=== PATIENT | male | born 1950 | race Caucasian/White ===

== ENCOUNTER 2016-06-17 13:54 | Emergency (ER) | payer OTHER ==
[2016-06-17] MEDS ORDERED: TETRACAINE 0.5% - 2 ML EYE DROPS ONE (14:01)
[2016-06-17] MEDS ORDERED: FLUORESCEIN 1 MG EYE STRIP ONE (14:01)
[2016-06-17] MEDS: FLUORESCEIN 1 MG EYE STRIP LEFT EYE ONE (14:10)
[2016-06-17] MEDS: TETRACAINE 0.5% - 2 ML EYE DROPS LEFT EYE ONE (14:10)
[2016-06-17 14:24] VITALS: RESP 16; TEMP 96.7
--- NOTE | 2016-06-18 01:01 | PDOC ---
Eye Complaint HPI - General Chief Complaint: Eye Problem / Injury Stated Complaint: foreign body left eye Date Seen by Provider: 06/17/16 Time Seen by Provider: 14:00 Source: POSITIVE: Patient Exam Limitations: POSITIVE: No limitations Nurse's Notes Reviewed & Considered: Yes - History of Present Illness Initial Comments: The patient is a 66-year-old male. 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 He was not wearing any safety glasses or corrective lenses. He states that he developed an abrupt onset of a foreign body sensation in his left eye. Under normal circumstances he states he does not wear contact lenses or eyeglasses. 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) Severity: Moderate Quality: REPORTS: "Pain" (Foreign body sensation left eye) Recent Injury: REPORTS: Yes (As above) Associated Symptoms: REPORTS: Foreign Body Sensation Context: REPORTS: Foreign Body, Direct Trauma Concurrent Injuries: DENIES: Neck, Head, Back, Chest, Abdomen, Extremities, Face , Other Modifying Factors: DENIES: Nothing Exacerbates, Exertion, Movement, Rest, Ice, Positioning, Nothing Relieves, Other Similar Symptoms Previously: No Recent Care Received: REPORTS: Denies Any Prior Injuries Related to Current Complaint?: No - Patient Home Medications Home Medications: Home Medications Imiquimod 1 each TOPICAL QD #14 pkg 01/06/16 Levothyroxine Sodium 1 tab-cap PO QAM #90 tab 01/06/16 Sulfacetamide Oph Soln 10% [Bleph 10 Ophth Soln] 5 ml OP Q6H #4 drops 06/17/16 - Patient Allergies Allergies/Adverse Reactions: Allergies Allergy/AdvReac Type Severity Reaction Status Date / Time No Known Drug Allergies Allergy NOT Verified 06/17/16 14:06 APPLICABLE Past Medical History - heen HEENT History: Denies History Cardiovascular History: Denies History Respiratory History: Denies History Gastrointestinal History: Denies History Genitourinary History: Denies History Endocrine History: Hypothyroidism Musculoskeletal History: Back Pain, Osteoarthritis Neurological History: Traumatic Brain Injury Blood Disorders: Denies History Psychiatric History: Denies History History of Sexually Transmitted Diseases: No Cancer History: Denies History In Past Year Been Physically Harmed or Verbally Threatened: No History of MDRO: Unknown Tobacco Use: Never Smoker Alcohol Use: Rarely Substance Use Type: None Previous Surgical History: Yes Type / Date of Surgery: BACK L4-5 laminectomy/discectomy for massive herniation , RT ELBOW--removal of loose body age 15, R CARPAL TUNNEL release, arthroscopic debridement bilateral KNEES Significant Family History: No pertinent family hx Past Medical History Reviewed: Reviewed - No Changes ROS - Limitations ROS Limitations: No Limitations Constitution: REPORTS: Denies Symptoms Cardiovascular: REPORTS: Denies Cardiac Symptoms Respiratory: REPORTS: Denies Resp Symptoms Neurological: REPORTS: Denies Neuro Symptoms Gastrointestinal: REPORTS: Denies GI Symptoms Endocrine: REPORTS: Denies Symptoms Musculoskeletal: REPORTS: Denies MS Symptoms Genitourinary: REPORTS: Denies Symptoms Eyes: REPORTS: Eye Pain (Left) ENT: REPORTS: Denies Symptoms Skin: REPORTS: Denies Skin Symptoms Lympathic: REPORTS: Denies Lympathic Symptoms Immunologic: POSITIVE: Denies Symptoms Psychiatric: POSITIVE: Denies Psych Symptoms Eye Complaint Physical Exam - General Appearance General Appearance: POSITIVE: Alert, Cooperative, No Acute Distress, No Evidence of Trauma - Visual Acuity / Pupil Size Visual Acuity: 20/200: Left, 20/40: Right Pupil Size: 3 mm: Bilateral (PERRLA) - HEENT Head / Face: POSITIVE: Atraumatic, Normal Inspection, No Facial Swelling Eyes: POSITIVE: PERRL, EOM's Intact, Eyelids Uninjured, Conjunctivae Uninjured, No Nystagmus, No Globe Trauma, Sclera Normal, Normal Fundoscopic Exam, Ant. Chamber Nml Inspect., Posterior Segments Normal, Other (Eversion of left upper eyelid reveals a black foreign body, which was easily removed with a moistened Q -tip). NEGATIVE: Fluorescein Exam Normal (Corneal abrasion center of cornea), Normal Corneal Inspection (Corneal abrasion, center of cornea) Ears: POSITIVE: Ears Normal Inspection, Auricle Normal Nose: POSITIVE: Inspection Normal, No Apparent Trauma, Nares Normal, No CSF Leak - Skin Skin: POSITIVE: Normal Color, No Skin Rash - Respiratory / Cardiovascular Respiratory / CVS: POSITIVE: No Respiratory Distress, Breath Sounds Normal, Regular Rate/Rhythm, Heart Sounds Normal Peripheral Pulses: Radial (R): 2+, Radial (L): 2+ Images - Eyes Eye: 1 - Corneal abrasion Procedures - Eye Procedure Time of Procedure: 14:10 Procedure Done By:: Dr. Jason Location: Left Eye Tetracaine Drops Applied: Yes Eye FB Removal: Removal w/ Cotton Swab (Foreign body underneath left upper eyelid removed with cotton swab) Eye Irrigated w/ Saline (mL): 30 Antibiotic Oinment/Drps Admin: Left eye Procedure Note:: After instillation of tetracaine eyedrops, the left eyelids were everted. There was a foreign body identified under the left upper eyelid, which was swabbed out with a moistened Q-tip. Fluorescein stain shows a corneal abrasion in the center of the cornea. Eye Complaint Progress - Patient's Progress Pain Medication Addressed: POSITIVE: Yes (Recommended Advil or Tylenol) School/Work Release Addressed: POSITIVE: Yes (Avoid wind, sun and dust this weekend) Re-Examine Time:: 14:30 Status: POSITIVE: Improved, Re-Examined - Consult Counseled: POSITIVE: Patient, RE: DX, RE: Need for F/U Patient Care Time - Estimated PCT Patient Care Time (In Minutes): 30 Vital Signs - VS Reviewed Vital Signs Reviewed: Yes Discharge Clinical Impression: Corneal abrasion, Foreign body accidentally entering eye and adnexa Discharge Disposition: Discharged to Home Condition: Good Prescriptions / Orders: Sulfacetamide Oph Soln 10% [Bleph 10 Ophth Soln] 5 ml OP Q6H #4 drops Patient Instructions Given at Discharge: Corneal Abrasion (ED), Eye Foreign Body (ED) Additional Instructions: You had and a foreign body lodged under your left upper eyelid. This has caused you to have a scratch on your left cornea. This should heal without to much difficulty in a few days. Please place four sulfacetamide eyedrops in your left eye every 4 hours while awake. Avoid wind, sun and dust. Follow-up with your primary care provider or eye physician if not back to normal in 3-4 days. Return here anytime if condition worsens in any way whatsoever. Follow Up With: KODAK BOGGS [Primary Care Provider] - (Instructions as above. Return as necessary. Follow-up with your primary care provider or eye physician.)
== END 2016-06-17 14:37 | disposition home or self-care (01) ==
LOC: ER 13:54
DX: T15.02XA Foreign body in cornea, left eye, initial encounter (principal); W31.89XA Contact with other specified machinery, initial encounter
CPT/HCPCS: 65220; 99282

== ENCOUNTER → 2016-06-28 | Outpatient (CLI) | payer OTHER | LOC: LAB 08:51 | PROVIDERS: ATTEND Internal Medicine | DX: E03.9 Hypothyroidism, unspecified (principal) | CPT/HCPCS: 36415; 84443 ==

== ENCOUNTER → 2016-07-06 | Outpatient (CLI) | payer OTHER | LOC: MMPC 11:11 | PROVIDERS: ATTEND Internal Medicine | DX: R97.20 Elevated prostate specific antigen [PSA] (principal); E03.9 Hypothyroidism, unspecified; L57.0 Actinic keratosis | CPT/HCPCS: 17000 ×2; 17003 ×2; 99213; G0463 ==